=== PATIENT | female | born 2000 | race Two or more races ===

== ENCOUNTER 2022-03-03 17:57 | Emergency (ER) | payer OTHER ==
[2022-03-03 21:29] VITALS: BP 126/84
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
== END 2022-03-03 22:03 | disposition home or self-care (01) ==
LOC: ED 17:57
DX: S16.1XXA Strain of muscle, fascia and tendon at neck level, initial encounter (principal); V43.92XA Unspecified car occupant injured in collision with other type car in traffic accident, initial encounter; Y93.89 Activity, other specified; Y92.410 Unspecified street and highway as the place of occurrence of the external cause
CPT/HCPCS: 99282; 99284

== ENCOUNTER → 2022-03-03 | Outpatient (CLI) | payer OTHER | END | disposition critical access hospital (66) | LOC: EMS 17:35 | DX: R51.9 Headache, unspecified (principal); V43.52XA Car driver injured in collision with other type car in traffic accident, initial encounter; Y92.413 State road as the place of occurrence of the external cause | CPT/HCPCS: A0425; A0429 ==

== ENCOUNTER 2022-08-11 09:47 | Emergency (ER) | payer OTHER ==
[2022-08-11 10:01] VITALS: BP 122/73
[2022-08-11 10:12] LABS: BASOPHILS % (AUTO) 0.3 %; EOSINOPHILS % (AUTO) 0.3 %; HCT - HEMATOCRIT 27.9 % (37.0-47.0); HGB - HEMOGLOBIN 7.6 g/dL (12.0-16.0); LYMPHOCYTES # (AUTO) 0.9 10^3/uL (1.5-3.5); LYMPHOCYTES % (AUTO) 6.8 %; MEAN CORPUSCULAR HEMOGLOBIN 18.3 pg (27.0-31.0); MEAN CORPUSCULAR HGB CONC 27.2 g/dL (32.0-36.0); MEAN CORPUSCULAR VOLUME 67.2 fL (81.0-99.0); MEAN PLATELET VOLUME 9.4 fL (7.9-10.8); MONOCYTES # (AUTO) 0.3 10^3/uL (0.0-1.0); MONOCYTES % (AUTO) 2.6 %; NEUTROPHILS # (AUTO) 11.4 10^3/uL (1.5-6.6); NEUTROPHILS % (AUTO) 89.7 %; PLT - PLATELET COUNT 463 10^3/uL (130-450); RED BLOOD COUNT 4.15 10^6/uL (4.20-5.40); RED CELL DISTRIBUTION WIDTH 20.1 % (12.0-15.0); WHITE BLOOD COUNT 12.7 x10^3/uL (4.8-10.8)
[2022-08-11 10:13] LABS: SLIDE REVIEW? Indicated
[2022-08-11 10:14] LABS: RBC MORPHOLOGY (MULTIPLE) 4+ ANISOCYTOSIS (NORMAL)
[2022-08-11 10:27] LABS: BILIRUBIN,URINE NEGATIVE (NEGATIVE); GLUCOSE, URINE (UA) NEGATIVE (NEGATIVE); KETONES,URINE (UA) NEGATIVE (NEGATIVE); LEUKOCYTE ESTERASE, URINE NEGATIVE (NEGATIVE); NITRITE,URINE NEGATIVE (NEGATIVE); OCCULT BLOOD,URINE TRACE-INTA (NEGATIVE); PH,URINE 5.5 PH (5.0-7.5); PROTEIN,URINE NEGATIVE (NEGATIVE); UROBILINOGEN,URINE 0.2 (NORMAL) E.U./dL (NORMAL)
[2022-08-11 10:31] LABS: CLARITY,URINE CLEAR (CLEAR); HCG UR QUAL NEGATIVE
[2022-08-11 10:43] LABS: CALCIUM 9.3 mg/dL (8.5-10.3); CREATININE 0.6 mg/dL (0.4-1.0); POTASSIUM 3.8 mmol/L (3.5-5.0)
--- NOTE | 2022-08-11 10:54 | ED Physician Documentation ---
History of Present Illness - Stated complaint Stated Complaint: DIZZINESS - Chief complaint Chief Complaint: General - History obtained from History obtained from: Patient - Additonal information Additional information: 22-year-old woman who has required both IV and oral iron supplementation in the past for anemia probably related to long periods. She has never had actual blood transfusion. She has had to abort to personal fitness test for the [employer] recently because of lightheadedness and weakness. She denies current symptoms of chest pain, dizziness, or lightheadedness. She is not currently taking prescription iron supplementation but is taking a multivitamin with iron. PD PAST MEDICAL HISTORY - Past Medical History Psych: Depression - Past Surgical History Past Surgical History: No - Present Medications Home Medications: Ambulatory Orders Medication Instructions Recorded Confirmed Ferrous Sulfate [Feosol] 325 mg PO TID #90 tablet 08/11/22 Sertraline HCl 100 mg PO DAILY 08/11/22 08/11/22 - Allergies Allergies/Adverse Reactions: Allergies Allergy/AdvReac Type Severity Reaction Status Date / Time No Known Drug Allergies Allergy Verified 08/11/22 10:00 - Social History Does the pt smoke?: No Smoking Status: Never smoker Does the pt drink ETOH?: No Does the pt have substance abuse?: No - Immunizations Immunizations are current?: Yes - POLST Patient has POLST: No PD ED PE NORMAL - Vitals Vital signs reviewed: Yes - General General: Alert and oriented X 3, Other (Pale) - Neuro Neuro: Alert and oriented X 3 - Psych Psych: Normal mood, Normal affect Results - Vitals Vitals: Vital Signs - 24 hr 08/11/22 09:57 Temperature 36.5 C Heart Rate 95 Respiratory 16 Rate Blood Pressure 122/73 O2 Saturation 100 Oxygen O2 Source Room air - EKG (time done) 1016 EKG releavant findings:: EKG personally interpreted by author of this note. Relevant findings are: Rate: Rate (enter#) (85) Rhythm: NSR [place]: Normal Intervals: Normal [place] QRS: Normal Ischemia: Normal ST segments - Labs Labs: Laboratory Tests 08/11/22 08/11/22 08/11/22 10:07 10:07 10:25 WBC 12.7 H RBC 4.15 L Hgb 7.6 L Hct 27.9 L MCV 67.2 L MCH 18.3 L MCHC 27.2 L RDW 20.1 H Plt Count 463 H MPV 9.4 Neut # (Auto) 11.4 H Lymph # (Auto) 0.9 L Garrett # (Auto) 0.3 Eos # (Auto) 0.0 Baso # (Auto) 0.0 Absolute Nucleated RBC 0.00 Nucleated RBC % 0.0 Manual Slide Review Indicated RBC Morph Micro Appear 4+ ANISOCYTOSIS Sodium 137 Potassium 3.8 Chloride 104 Carbon Dioxide 25 Anion Gap 8.0 BUN 11 Creatinine 0.6 Estimated GFR (MDRD) 123 Glucose 108 H Calcium 9.3 Iron 15 L TIBC 505 H % Saturation 3 L Transferrin 361 Urine Color DARK YELLOW Urine Clarity CLEAR Urine pH 5.5 Ur Specific [place] >=1.030 H Urine Protein NEGATIVE Urine Glucose (UA) NEGATIVE Urine Ketones NEGATIVE Urine Occult Blood TRACE-INTA Urine Nitrite NEGATIVE Urine Bilirubin NEGATIVE Urine Urobilinogen 0.2 (NORMAL) Ur Leukocyte Esterase NEGATIVE Ur Microscopic Review NOT INDICATED Urine Culture Comments NOT INDICATED Urine HCG, Qual NEGATIVE PD Medical Decision Making - ED course ED course: 22-year-old woman with recurrent iron deficiency anemia. Hemoglobin today is 7.6 with microcytic indices. There are no prior values available for comparison. Iron panel is consistent with iron deficiency. test was negative. EKG relatively unremarkable. 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 We will start high-dose oral iron supplementation in the interim. Departure - Departure Disposition: 01 Home, Self Care Clinical Impression: Iron deficiency anemia Qualifiers: Iron deficiency anemia type: unspecified iron deficiency Qualified Code(s): D50.9 - Iron deficiency anemia, unspecified Condition: Stable Record reviewed to determine appropriate education?: Yes Instructions: ED Anemia Iron Deficiency Prescriptions: Ferrous Sulfate [Feosol] 325 mg PO TID #90 tablet Comments: Your hemoglobin today is 7.6, not low enough for actual blood transfusion but does need to be addressed. Your iron indices are consistent with iron deficiency with a iron level of 15, total iron by iron binding capacity of 505, and an iron saturation percent of 3. Follow-up with your flight surgeon for consideration for hematology referral and outpatient IV iron infusion which cannot be arranged from the emergency department. Return if worse. Forms: Activity restrictions
== END 2022-08-11 10:57 | disposition home or self-care (01) ==
LOC: ED 09:47
DX: D50.9 Iron deficiency anemia, unspecified (principal)
CPT/HCPCS: 36415; 80048; 81001; 81003; 81025; 83540; 84466; 85025; 87086; 93005; 99283; 99284